=== PATIENT | male | born 1945 | race Two or more races ===

== ENCOUNTER 2016-10-09 09:52 | Emergency (ER) | payer MEDICARE, OTHER ==
[~2016-10-09] VITALS: Ht 167.6 cm; Wt 75.0 kg
[2016-10-09 09:54] VITALS: BP 148/83; PULSE 64; RESP 16; TEMP 97.3; O2SAT 94
[2016-10-09] MEDS ORDERED: LOSA25TA PO (10:37)
[2016-10-09] MEDS ORDERED: TRIA37.5 PO (10:37)
[2016-10-09] MEDS ORDERED: SIMV40TA PO (10:37)
--- NOTE | 2016-10-09 10:57 | PD ---
HPI Chief Complaint: Back/ Neck Pain or Injury Time Seen by Provider: 10:51 (Sydnie Katz) Time Seen by Provider: 11:25 (Bo Castillo) Travel History International Travel<30 days: No Contact w/Intl Traveler<30days: No Traveled to known affect area: No (Sydnie Katz) International Travel<30 days: No Contact w/Intl Traveler<30days: No Traveled to known affect area: No (Bo Castillo) History of Present Illness HPI Patient is a 71-year-old male presenting to the emergency department for evaluation of lower back pain. Patient states the pain started one week ago after he lifted a heavy kitchen sink. Since then has been sore however it became worse yesterday and today so he presented for evaluation. Patient states the pain is worse in the morning upon awakening. It does get better after he is been up for a while. He's been taking ibuprofen which normally would help his back pain, he states is not giving him relief. He reports his pain as a 10 out of 10 upon awakening. His pain is currently a 5 out of 10. He denies any numbness or weakness in his lower extremities, no bladder or bowel incontinence, no saddle paresthesia. He does report loose, watery stools on Sunday, Sunday they improved somewhat and today he said one normal bowel movement. He denies any dysuria. He has no other complaints at this time. Patient is from [place] and his primary care provider is there. (Sydnie Katz) HPI 71-year-old male presents the department with lower back pain for the past 4-5 days. Patient states he lifted a sink in his new home in [facility], and since that time he has had lumbar back strain bilaterally with some radicular symptoms into both lower extremities. He states his lower extremities feel somewhat weak when he is ambulating. Pain is worse with ambulation, but once he gets going it seems to improve. It does bother him at night as well. He denies numbness, tingling, or changes in her bowels or bladder. She does mention some mild diarrhea last several days which is improving. He denies fever, chills, or other symptoms. Patient states he gets back pain when he over exerts himself, but this seems worse than previous episodes and not improving. He is taking some Advil which has not helped. His pain when laying down now is 1/10, but with ambulation is 5/10. He has no known drug allergies. (Bo Castillo) [facility] Past Medical History High Cholesterol: Yes Genitourinary: Yes (prostate) Hypertension: Yes Influenza Vaccination: Yes (Sydnie Katz) Past Surgical History Genitourinary Surgery: Yes (prostate surgery) (Sydnie Katz) Social History Alcohol Use: Yes (with meal at dinner) Tobacco Use: No Substance Use: No (Sydnie Katz) Alcohol Use: Yes Tobacco Use: No Substance Use: No (Bo Castillo) Allergies-Medications (Allergen,Severity, Reaction): Coded Allergies: No Known Allergies (Unverified , 10/09/16) Reported Meds & Prescriptions Reported Meds & Active Scripts Active Reported Losartan (Losartan Potassium) 25 Mg Tab 25 Mg PO DAILY Triamterene-Hydrochlorothiazide 37.5-25 Mg Tab 1 Tab PO DAILY Simvastatin 40 Mg Tab 40 Mg PO HS (Bo Castillo) Review of Systems Except as stated in HPI: all other systems reviewed are Neg General / Constitutional: No: Fever, Chills Cardiovascular: No: Chest Pain or Discomfort Respiratory: No: Shortness of Breath Gastrointestinal: No: Abdominal Pain Genitourinary: No: Dysuria Musculoskeletal: Positive: Myalgias, Cramping, Pain Neurologic: No: Weakness, Focal Abnormalities, Sensory Disturbance (Sydnie Katz) Except as stated in HPI: all other systems reviewed are Neg (Bo Castillo ) Physical Exam Narrative GENERAL: Well-developed, well-nourished, alert elderly male. Resting comfortably in no acute distress. SKIN: Warm and dry. HEAD: Atraumatic. Normocephalic. EYES: Pupils equal and round. No scleral icterus. No injection or drainage. ENT: No nasal bleeding or discharge. Mucous membranes pink and moist. NECK: Trachea midline. No JVD. CARDIOVASCULAR: Regular rate and rhythm. No murmur appreciated. RESPIRATORY: No accessory muscle use. Clear to auscultation. Breath sounds equal bilaterally. GASTROINTESTINAL: Abdomen soft, non-tender, nondistended. Hepatic and splenic margins not palpable. MUSCULOSKELETAL: No obvious deformities. No clubbing. No cyanosis. No edema. No tenderness to palpation of lumbar spine, no step-off noted. Full range of motion in all 4 extremities. 5/5 muscle strength in bilateral lower extremities. Bilateral leg lift does not elicit pain in the lower back. Negative CVAT bilaterally. NEUROLOGICAL: Awake and alert. No obvious cranial nerve deficits. Motor grossly within normal limits. Normal speech. PSYCHIATRIC: Appropriate mood and affect; insight and judgment normal. (Sydnie Katz) Narrative GENERAL: Patient appears in mild distress. SKIN: Warm and dry. Normal color. Normal turgor. No rash. HEAD: Atraumatic. Normocephalic. EYES: Pupils equal and round. No scleral icterus. No injection or drainage. ENT: No nasal bleeding or discharge. Mucous membranes pink and moist. NECK: Trachea midline. No JVD. Pharynx is clear. CARDIOVASCULAR: Regular rate and rhythm. No murmurs gallops or rubs. RESPIRATORY: No accessory muscle use. Clear to auscultation. Breath sounds equal bilaterally. GASTROINTESTINAL: Abdomen soft, non-tender, nondistended. No pulsatile masses or bruits. Hepatic and splenic margins not palpable. MUSCULOSKELETAL: Extremities without clubbing, cyanosis, or edema. No obvious deformities. Patient has generalized bilateral lower extremity discomfort at the L5-S1 region. Patient's lower extremities have normal strength and sensation, but does have bilateral straight leg raise pain at 40. NEUROLOGICAL: Awake and alert. No obvious cranial nerve deficits. Motor grossly within normal limits. Five out of 5 muscle strength in the arms and legs. Normal speech. PSYCHIATRIC: Appropriate mood and affect; insight and judgment normal. (Bo Castillo) Data Data Last Documented VS Vital Signs Date Time Temp Pulse Resp B/P Pulse Ox O2 Delivery O2 Flow Rate FiO2 10/09/16 11:21 57 18 144/77 96 Room Air 10/09/16 09:54 97.3 (Bo Castillo) Orders Urinalysis - C+S If Indicated (10/09/16 10:49) Ketorolac Inj (Toradol Inj) (10/09/16 11:45) Orphenadrine Inj (Norflex Inj) (10/09/16 11:45) Ct Lumb Spine W/O Contrast (10/09/16 11:31) (Bo Castillo) Labs Laboratory Tests Test 10/09/16 10:55 Urine Color YELLOW Urine Turbidity CLEAR Urine pH 5.5 Urine Specific [place] 1.016 Urine Protein NEG mg/dL Urine Glucose (UA) NEG mg/dL Urine Ketones NEG mg/dL Urine Occult Blood NEG Urine Nitrite NEG Urine Bilirubin NEG Urine Urobilinogen LESS THAN 2.0 MG/DL Urine Leukocyte Esterase NEG Urine RBC 1 /hpf Urine WBC LESS THAN 1 /hpf Urine Granular Casts 2 /lpf Urine Mucus FEW /lpf Microscopic Urinalysis Comment CULT NOT INDICATED (Bo Castillo) MDM Medical Decision Making Medical Screen Exam Complete: Yes Emergency Medical Condition: Yes Interpretation(s) Vital Signs Date Time Temp Pulse Resp B/P Pulse Ox O2 Delivery O2 Flow Rate FiO2 10/09/16 09:54 97.3 64 16 148/83 94 Room Air Differential Diagnosis Strain versus sprain versus spasm versus discogenic pain versus urinary tract infection versus other Narrative Course Patient is a 71-year-old male presenting to the emergency department for evaluation of lower back pain. Symptoms started 1 week ago after lifting a heavy kitchen sink, worsened yesterday. Patient is likely secondary to muscle strain, spasm. We'll check a urinalysis to rule out UTI which is less likely. Patient is neurologically intact. Treatment initiated triage, care of patient will be transferred to medical provider when bed available. (Sydnie Katz) Medical Screen Exam Complete: Yes Emergency Medical Condition: Yes Differential Diagnosis Lumbago. Lumbar strain. Compression fracture. Sciatica. Narrative Course Patient is medically stable at time of exam. Patient is given 60 mg Toradol IM as well as [address] of the lumbar spine is ordered. 1240 hrs. patient is reassessed and felt to be much improved with the above medical treatment. CT results are still pending. CT shows chronic arthritic changes without acute compression fracture or signs of impingement. Per radiologist. Patient is discharged home with prescription for acetaminophen 500 mg 2 tabs every 6 hours when necessary pain, #60. Ibuprofen 600 mg 4 times a day #40. Norflex 100 mg twice a day 10. Patient follow local primary care physician or return to emergency Department with worsening symptoms as needed. (Bo Castillo) Diagnosis Primary Impression: Acute lumbar back pain Qualified Code: M54.5 - Acute bilateral low back pain, with sciatica presence unspecified Referrals: Primary Care Physician Patient Instructions: General Instructions, Low Back Strain (ED), Lower Back Exercises (ED) Additional Instructions: CT shows chronic arthritic changes without acute compression fracture or signs of impingement. Per radiologist. Patient is discharged home with prescription for acetaminophen 500 mg 2 tabs every 6 hours when necessary pain, #60. Ibuprofen 600 mg 4 times a day #40. Norflex 100 mg twice a day 10. Patient follow local primary care physician or return to emergency Department with worsening symptoms as needed. Med/Other Pt SpecificInfo: Prescription(s) given (Bo Castillo) Scripts Orphenadrine ER 12 HR (Orphenadrine CR)100 Mg [id number] Mg PO Q12HR #10 TAB Prov:Med Méndez MD 10/09/16 Ibuprofen 600 Mg [id number] Mg PO Q6H PRN (Pain/Inflammation) #40 TAB Prov:Med Méndez MD 10/09/16 Acetaminophen (Acetaminophen Extra Strength)500 Mg Cap1,000 Mg PO Q6H PRN (PAIN SCALE 4 TO 10) #60 CAP Ref 1 Prov:Med Méndez MD 10/09/16 Disposition: 01 DISCHARGE HOME Condition: Stable Sydnie Katz Oct 09, 2016 10:57 Bo Castillo Oct 09, 2016 11:25
[2016-10-09 11:21] VITALS: BP 144/77; PULSE 57; RESP 18; O2SAT 96
[2016-10-09 11:40] LABS: BLOOD, URINE NEG (NEG); COMMENT (UR) CULT NOT INDICATED; CULTURE IF INDICATED CULT NOT INDICATED; GLUCOSE,URINE NEG (NEG); GRANULAR CAST, URINE 2 /lpf; KETONE, URINE NEG (NEG); MUCUS URINE FEW /lpf (OCC); NITRITE,URINE NEG (NEG); PH, URINE 5.5 (5.0-8.5); URINE COLOR YELLOW (YELLW/STRAW)
[2016-10-09] MEDS ORDERED: ORPHENADRINE INJ 60 MG/2 ML AMP IM ONE (11:45)
[2016-10-09] MEDS ORDERED: KETOROLAC TROMETHAMINE 60 MG/2 ML (IM) VIAL IM ONE (11:45)
--- NOTE | 2016-10-09 12:42 | RADRPT ---
EXAM DATE/TIME: 10/09/2016 11:54 [facility] COMPARISON: No previous studies available for comparison. INDICATIONS: Pain after heavy lifting; evaluate for radiculopathy. RADIATION DOSE: 35.85 CTDIvol (mGy) MEDICAL HISTORY: None SURGICAL HISTORY: Prostate. ENCOUNTER: Initial ACUITY: 4 - 6 days PAIN SCALE: 4/10 LOCATION: Bilateral lumbar. TECHNIQUE: Volumetric scanning of the lumbar spine was performed. Multiplanar reconstructions in the sagittal, coronal and oblique axial planes were performed. Using automated exposure control and adjustment of the mA and/or kV according to patient size, radiation dose was kept as low as reasonably achievable t o obtain optimal diagnostic quality images. FINDINGS: There are degenerative changes in the lumbar spine. Vacuum disc is seen at T11-T12 without disc liyah iation. T12-L1: The thecal sac has a normal diameter. No evidence of disc bulge or protrusion. The neural foramina are patent bilaterally. L1-L2: The thecal sac has a normal diameter. No evidence of disc bulge or protrusion. The neural foramina are patent bilaterally. L2-L3: There is minimal loss of disc space height at L2-3 with generalized disc bulge present. There are mi ld degenerative changes in the facets. L3-L4: There is generalized disc bulge at L3-4 in the anterior thecal space with mild degenerative changes i n the facets. L4-L5: Moderate disc bulging is present with ligamentous hypertrophy and degenerative changes of facets caus ing a moderate degree of spinal stenosis. There is bilateral neural foramina encroachment worse on t he right than left. L5-S1: There is disc bugling L5-S1 causing some flattening of the anterior thecal space. Vacuum changes jitendra dent. There is bilateral neural foramina encroachment. Degenerative changes are present in the face ts. SI joints are normal. CONCLUSION: 1. Degenerative changes. 2. There is no evidence for compression fracture. The most significant degenerative changes are at L4-5 and L5-S1. There are no localizing anatomic changes. Cristian Botello MD FACR on October 09, 2016 at 12:32 Board Certified Radiologist. This report was verified electronically.
[2016-10-09] MEDS ORDERED: EXTR500C PO (12:48)
[2016-10-09] MEDS ORDERED: ORPH100T99 PO (12:48)
[2016-10-09] MEDS ORDERED: IBUP-232 PO (12:48)
== END 2016-10-09 13:26 | disposition home or self-care (01) ==
LOC: NEPE 09:52
DX: M54.5 Low back pain (principal); I10 Essential (primary) hypertension; E78.00 Pure hypercholesterolemia, unspecified; X50.0XXA Overexertion from strenuous movement or load, initial encounter; Y93.89 Activity, other specified; Y92.019 Unspecified place in single-family (private) house as the place of occurrence of the external cause; Y99.9 Unspecified external cause status
CPT/HCPCS: 72131; 81001; 96372; 99284; J1885; J2360